=== PATIENT | female | born 1970 | race African-American/Black ===

== ENCOUNTER → 2018-12-23 | Outpatient (CLI) | payer BC, OTHER ==
[2014-05-04 18:30] VITALS: BP 164/88
--- NOTE | 2018-12-25 09:08 | RAD ---
DATE: 12/23/2018 2:30 PM EXAM: MAMMO [facility] SCREENING BILATERAL HISTORY: routine screening evaluation. COMPARISON: 04/23/2015, 01/03/2017 Bilateral CC and MLO views of the breasts were performed. Bilateral breast tomosynthesis was performed in CC and MLO projections. This study was interpreted with the benefit of Computerized Aided Detection (CAD). Breast Density: The breast parenchyma shows scattered fibroglandular densities. Breast parenchyma level B. FINDINGS: The parenchymal pattern appears stable. Benign calcifications are present. No suspicious masses, microcalcifications or architectural distortion is present to suggest malignancy in either breast. The visualized axillae are unremarkable. IMPRESSION: No mammographic evidence of malignancy. BI-RADS CATEGORY: 2 BENIGN FINDING(S) RECOMMENDED FOLLOW-UP: 12M 12 MONTH FOLLOW-UP Annual screening mammography is recommended, unless clinically indicated sooner based on symptoms or change in physical exam. PQRS compliance statement: Patient information was entered into a reminder system with a target due date 12/25/2019 for the next mammogram. Mammography is a sensitive method for finding small breast cancers, but it does not detect them all and is not a substitute for careful clinical examination. A negative mammogram does not negate a clinically suspicious finding and should not result in delay in biopsying a clinically suspicious abnormality. "Our facility is accredited by the [employer] Mammography [employer]." ALICIAD
== END | disposition home or self-care (01) ==
LOC: MAMMO 14:10
PROVIDERS: ATTEND Obstetrics & Gynecology
DX: Z12.31 Encounter for screening mammogram for malignant neoplasm of breast (principal); N64.89 Other specified disorders of breast
CPT/HCPCS: 77063; 77067

== ENCOUNTER → 2019-12-16 | Outpatient (CLI) | payer BC, OTHER ==
[2014-05-04 18:30] VITALS: BP 164/88
--- NOTE | 2019-12-16 10:36 | RAD ---
Targeted ultrasound of the anterior left elbow HISTORY: Anterior elbow swelling. FINDINGS: Targeted ultrasound is performed at the anterior elbow in the region of swelling. No abnormal fluid collection is seen. No suspicious mass is identified. IMPRESSION: No evidence of fluid collection at the area of concern. Targeted ultrasound of the right knee HISTORY: Right knee swelling posterior and lateral. FINDINGS: Targeted ultrasound performed at the posterolateral knee at the area of swelling. No abnormal fluid collection is seen. No evidence of suspicious mass. IMPRESSION: No evidence of fluid collection at the area of concern. Electronically signed by: Glenroy Quigley MD (12/16/2019 10:33 AM) [id number]
== END ==
LOC: US 09:40
PROVIDERS: ATTEND Family Medicine
DX: M13.821 Other specified arthritis, right elbow (principal); M13.162 Monoarthritis, not elsewhere classified, left knee; M25.521 Pain in right elbow; M25.421 Effusion, right elbow
CPT/HCPCS: 76881

== ENCOUNTER → 2020-04-19 | Outpatient (CLI) | payer BC, OTHER ==
[2014-05-04 18:30] VITALS: BP 164/88
--- NOTE | 2020-04-21 13:22 | RAD ---
DATE: 04/19/2020 EXAM: DIGITAL SCREEN BILAT W/CAD HISTORY: 49-year-old woman presenting for routine annual screening mammogram COMPARISON: 12/23/2018, 01/03/2017, 04/23/2015 This study was interpreted with the benefit of Computerized Aided Detection (CAD). Breast Density: The breast parenchyma shows scattered fibroglandular densities. Breast parenchyma level B. FINDINGS: There is no mass, suspicious calcification, or architectural distortion in either breast. IMPRESSION: No evidence of malignancy in either breast. BI-RADS CATEGORY: 1 NEGATIVE RECOMMENDED FOLLOW-UP: 12 MONTH FOLLOW-UP PQRS compliance statement: Patient information was entered into a reminder system with a target due date 04/20/2021 for the next mammogram. Mammography is a sensitive method for finding small breast cancers, but it does not detect them all and is not a substitute for careful clinical examination. A negative mammogram does not negate a clinically suspicious finding and should not result in delay in biopsying a clinically suspicious abnormality. "Our facility is accredited by the [employer] Mammography Program." ALICIAD
== END ==
LOC: MAMMO 13:56
PROVIDERS: ATTEND Family Medicine
DX: Z12.31 Encounter for screening mammogram for malignant neoplasm of breast (principal)
CPT/HCPCS: 77067

== ENCOUNTER → 2021-05-11 | Outpatient (CLI) | payer BC, OTHER ==
[2014-05-04 18:30] VITALS: BP 164/88
--- NOTE | 2021-05-11 16:01 | RAD ---
INDICATION : Routine Screening. COMPARISON: [facility] including November 2018 TECHNIQUE: Standard mammogram screening views of the bilateral breasts were obtained with 3D tomosynt hesis. CAD was utilized. FINDINGS: The breasts are scattered density. No definite suspicious mass. IMPRESSION: BI-RADS Category 1: Negative. Recommend repeat screening examination in one year. The patient was placed into the recall system with a suggested recall date for follow up imaging. Mammography is the most sensitive method for finding small breast cancers, but it does not detect the m all and is not a substitute for careful clinical examination. A negative mammogram does not negate a clinically suspicious finding and should not result in delay in biopsying a clinically suspicious abnormality. Electronically signed by: Joe Aguilar MD (05/11/2021 3:58 PM) [id number]
== END ==
LOC: MAMMO 15:14
PROVIDERS: ATTEND Family Medicine
DX: Z12.31 Encounter for screening mammogram for malignant neoplasm of breast (principal)
CPT/HCPCS: 77063; 77067